=== PATIENT | female | born 1995 | race Caucasian/White ===

== ENCOUNTER 2023-08-16 14:18 | Emergency (ER) | payer OTHER ==
[2023-08-16] MEDS ORDERED: NA CHLORIDE 0.9% 1,000 ML ONE (15:27)
[2023-08-16] MEDS ORDERED: LORazepam 2 MG/ML VIAL ONE (15:27)
[2023-08-16 15:51] LABS: Absolute Eosinophils 0.1 K/uL (0-0.5); Absolute Lymphocytes (CBC) 2.7 K/uL (0.7-4.9); Absolute Monocytes 0.9 K/uL (0.1-1.3); Absolute Neutrophil 9.1 K/uL (1.8-8.0); Basophils % 0.3 % (0-1.3); Eosinophils % 0.7 % (0-4.4); Hematocrit 44.5 % (36.0-45.0); Hemoglobin 15.2 g/dL (12.0-15.0); Lymphocytes % 20.9 % (15.3-44.8); MCH 35.5 pg (27.0-35.0); MCV 104.3 fL (80-100); MPV 7.4 fL (7.6-11.3); Monocytes % 6.8 % (3.3-12.3); Neutrophils % 71.3 % (41.7-73.7); Platelets 398 thou/uL (152-406); RBC Red Blood Cell Count 4.27 M/uL (3.86-4.86)
[2023-08-16 16:25] LABS: ALT/SGPT 67 U/L (13-56); AST/SGOT 30 U/L (15-37); Albumin 4.1 g/dL (3.4-5.0); Albumin/Globulin Ratio 1.1 (1.1-1.8); Alkaline Phosphatase 104 U/L (45-117); Anion Gap 11.5 mEq/L (5.0-15.0); BUN Blood Urea Nitrogen 8 mg/dL (7-18); Bicarbonate 23 mEq/L (21-32); Bilirubin Direct 0.3 mg/dL (0-0.2); Bilirubin Indirect, Calculated 0.7 mg/dL (0.2-0.8); Globulin 3.8 g/dL (2.3-3.5); Glomerular Filtration Rate 113 ml/min (=/>90); Glucose Level 88 mg/dL (74-106); Magnesium 2.1 mg/dL (1.6-2.4); Potassium 3.5 mEq/L (3.5-5.1); Protein, Total 7.9 g/dL (6.4-8.2); Sodium Level 137 mEq/L (136-145)
[2023-08-16 16:32] LABS: Troponin High Sensitivity < 3.0 pg/mL (<58.9)
--- NOTE | 2023-08-16 16:38 | RAD REPORT ---
EXAM DESCRIPTION: Angelito Single View08/16/2023 4:16 pm CLINICAL HISTORY: Chest pain COMPARISON: none FINDINGS: The lungs appear clear of acute infiltrate. The heart is normal size IMPRESSION: No acute abnormalities displayed
[2023-08-16] MEDS ORDERED: ONDANSETRON 4 MG/2 ML VIAL ONE (16:54)
[2023-08-16] MEDS ORDERED: KETOROLAC 30 MG/ML INJ ONE (16:54)
--- NOTE | 2023-08-16 17:41 | EDPHYS ---
Physician Documentation [facility] Name: Jonny Felix Age: 27 yrs Sex: Female : 1995 Arrival Date: 08/16/2023 Time: 14:18 Bed 29 Private MD: ED Physician Bryant Escoto HPI: 08/15 15:14 This 27 yrs old Female presents to ER via Unassigned with complaints of Chest Pain, sb4 Breathing Difficulty. 15:23 Patient reports chest pain and shortness of breath for 3 weeks now. She states that it sb4 was intermittent and now is more continuous. She saw a provider at [facility] who did PFTs and EKG and was given an inhaler. She states that it has not helped and her pain has persisted. She states that she vomited today. Patient is shaking in triage. Historical: - Allergies: 15:28 No Known Allergies; ph - Immunization history:: Adult Immunizations up to date. - Infectious Disease History:: Denies. - Social history:: Smoking status: Patient denies any tobacco usage or history of. ROS: 15:23 Constitutional: Negative for fever, chills, and weight loss, sb4 15:23 Cardiovascular: Positive for chest pain, 15:23 Respiratory: Positive for shortness of breath, 15:23 Abdomen/GI: Positive for nausea and vomiting, 15:23 All other systems are negative, Exam: 15:23 Head/Face: Normocephalic, atraumatic. Eyes: Extra-ocular motions intact. Periorbital sb4 areas with no swelling, redness, or edema. ENT: Mucous membranes moist. Skin: Warm, dry with normal turgor. Normal color with no rashes, no lesions, and no evidence of cellulitis. MS/ Extremity: Pulses equal, no cyanosis. Neurovascular intact. Full, normal range of motion. Neuro: Awake and alert, GCS 15, oriented to person, place, time, and situation. Motor strength 5/5 in all extremities. Sensory grossly intact. 15:23 Constitutional: The patient appears alert, awake, anxious, restless, uncomfortable, Vital Signs: 15:27 BP 117 / 86; Pulse 87; Resp 18; Temp 97.5; Pulse Ox 99% on R/A; Weight 58.97 kg; Height ph 5 ft. 3 in. ; 17:59 BP 129 / 82; Pulse 62; Resp 17; Pulse Ox 98% on R/A; cm10 15:27 Body Mass Index 23.03 (58.97 kg, 160.02 cm) ph MDM: 14:44 Patient medically screened. sb4 17:40 Data reviewed: vital signs, nurses notes, lab test result(s), EKG, radiologic studies, sb4 and as a result, I will discharge patient. Counseling: I had a detailed discussion with the patient and/or guardian regarding the historical points, exam findings, and any diagnostic results supporting the discharge/admit diagnosis, lab results, radiology results, to return to the emergency department if symptoms worsen or persist or if there are any questions or concerns that arise at home. 08/15 15:14 Order name: Basic Metabolic Panel; Complete Time: 16:36 sb4 08/15 15:14 Order name: CBC with Diff; Complete Time: 15:58 sb4 08/15 15:14 Order name: D-Dimer; Complete Time: 17:14 sb4 08/15 15:14 Order name: LFT's; Complete Time: 16:36 sb4 08/15 15:14 Order name: Magnesium; Complete Time: 16:36 sb4 08/15 15:14 Order name: Troponin HS; Complete Time: 16:36 sb4 08/15 15:14 Order name: Test, Serum; Complete Time: 16:38 sb4 08/15 15:14 Order name: XRAY Chest (1 view); Complete Time: 16:39 sb4 08/15 15:14 Order name: Cardiac monitoring 08/15 15:14 Order name: EKG - Nurse/Tech; Complete Time: 15:49 sb4 08/15 15:14 Order name: IV Saline Lock; Complete Time: 15:49 sb4 08/15 15:14 Order name: Labs collected and sent; Complete Time: 15:49 sb4 08/15 15:14 Order name: O2 Per Protocol 08/15 15:14 Order name: O2 Sat Monitoring 08/15 15:51 Order name: Labs - recollect needed: recollect blue top; Complete Time: 16:51 bd EC:26 Rate is 89 beats/min. Rhythm is regular, Normal Sinus Rhythm. KS interval is shortened sb4 at 110 msec. QRS interval is normal at 84 msec. QT interval is normal at 360 msec. No Q waves. T waves are Normal. No ST changes noted. Clinical impression: Normal ECG. Interpreted by me. Reviewed by me. Administered Medications: 15:49 Drug: Ativan IVP 0.5 mg IVP once Route: IVP; Site: left antecubital; kb3 17:00 Follow up: Response: No adverse reaction; Anxiety decreased kb3 15:49 Drug: NS 0.9% IV 1000 ml IV at 1 bolus Per protocol; 1000 mL bolus Route: IV; Rate: 1 kb3 bolus; Site: left antecubital; 17:00 Follow up: Response: No adverse reaction; IV Status: Completed infusion; IV Intake: kb3 1000ml 16:59 Drug: Ketorolac IVP 15 mg IVP once Route: IVP; Site: left antecubital; ph 18:00 Follow up: Response: No adverse reaction; Pain is decreased kb3 16:59 Drug: Ondansetron IVP 4 mg IVP once; over 2 minutes Route: IVP; Site: left antecubital; ph 17:00 Follow up: Response: No adverse reaction; Nausea is decreased kb3 Disposition: 18:21 Co-signature as Attending Physician, Bryant Escoto MD I reviewed the patient's care rt provided by the Advanced Practice Provider and agree with the diagnosis and treatment plan. Disposition Summary: 08/16/23 17:40 Discharge Ordered Notes: Location: Home sb4 Problem: an ongoing problem sb4 Symptoms: have improved sb4 Condition: Stable sb4 Diagnosis - Chest pain, unspecified sb4 Followup: sb4 - With: Emergency Department - When: As needed - Reason: Trouble breathing, Worsening of condition Discharge Instructions: - Discharge Summary Sheet sb4 - Nonspecific Chest Pain, Adult, [id number] sb4 Forms: - Work release form sb4 - Patient Portal Instructions sb4 - Leadership Thank You Letter sb4 Prescriptions: - Zofran 4 mg Oral Tablet - take 1 tablet ORAL route every 12 hours As needed; 20 tablet; Refills: 0, sb4 Product Selection Permitted - Diclofenac Sodium 75 mg Oral Tablet Sustained Release - take 1 tablet ORAL route 2 times per day; 30 tablet; Refills: 0, Product sb4 Selection Permitted Signatures: Dispatcher [employer] Courtney Espinal Patricia, RN RN Tara Sánchez, RN RN kb3 Justina Delgado PAMachelleC PA-C sb4 Bryant Escoto MD MD rt Corrections: (The following items were deleted from the chart) 15:14 15:14 BASIC METABOLIC PANEL+C.LAB.BRZ ordered. EDMS EDMS 15:14 15:14 CBC+H.LAB.BRZ ordered. EDMS EDMS 15:14 15:14 D-DIMER+COAG.LAB.BRZ ordered. EDMS EDMS 15:14 15:14 HEPATIC FUNCTION+C.LAB.BRZ ordered. EDMS EDMS 15:14 15:14 MAGNESIUM+C.LAB.BRZ ordered. EDMS EDMS 15:14 15:14 Troponin High Sensitivity+C.LAB.BRZ ordered. EDMS EDMS 15:14 15:14 TEST, SERUM+SC.LAB.BRZ ordered. EDMS EDMS 15:14 15:14 Chest Single View+RAD.RAD.BRZ ordered. EDMS EDMS
--- NOTE | 2023-08-16 17:41 | ER ---
Nurse's Notes [facility] [place] Name: Jonny Felix Age: 27 yrs Sex: Female : 1995 Arrival Date: 08/16/2023 Time: 14:18 Bed 29 Private MD: Diagnosis: Chest pain, unspecified Presentation: 08/15 15:27 Chief complaint: Patient states: Intermittent chest pain x 3 weeks. also reports SOB, ph sweating and nausea. Coronavirus screen: Vaccine status: Patient reports receiving the 2nd dose of the covid vaccine. Ebola Screen: No symptoms or risks identified at this time. Initial Sepsis Screen: Does the patient meet any 2 criteria? No. Patient's initial sepsis screen is negative. Does the patient have a suspected source of infection? No. Patient's initial sepsis screen is negative. Risk Assessment: Do you want to hurt yourself or someone else? Patient reports no desire to harm self or others. Onset of symptoms was August 16, 2023. 15:27 Method Of Arrival: Ambulatory ph 15:27 Acuity: AKI 2 ph Historical: - Allergies: 15:28 No Known Allergies; ph - Immunization history:: Adult Immunizations up to date. - Infectious Disease History:: Denies. - Social history:: Smoking status: Patient denies any tobacco usage or history of. Screenin:00 [facility] ED Fall Risk Assessment (Adult) History of falling in the last 3 months, kb3 including since admission No falls in past 3 months (0 pts) Confusion or Disorientation No (0 pts) Intoxicated or Sedated No (0 pts) Impaired Gait No (0 pts) Mobility Assist Device Used No (0 pt) Altered Elimination No (0 pt) Score/Fall Risk Level 0 - 2 = Low Risk Oriented to surroundings. Abuse screen: Denies threats or abuse. Denies injuries from another. Nutritional screening: No deficits noted. Tuberculosis screening: No symptoms or risk factors identified. Assessment: 16:00 Reassessment:. General: Appears in no apparent distress. Behavior is calm, cooperative. kb3 16:00 Pain: Complains of pain in epigastric area Pain does not radiate. Quality of pain is kb3 described as aching, crampy, Pain began 2-3 days ago. Cardiovascular: Reports chest pain, nausea, Heart tones present Capillary refill < 3 seconds Clubbing of nail beds is absent JVD is absent Patient's skin is warm and dry. Pulses are 2+ in right radial artery and left radial artery Rhythm is sinus rhythm. Respiratory: Reports shortness of breath at rest Breath sounds are clear. GI: Reports upper abdominal pain, nausea. Vital Signs: 15:27 BP 117 / 86; Pulse 87; Resp 18; Temp 97.5; Pulse Ox 99% on R/A; Weight 58.97 kg; Height ph 5 ft. 3 in. ; 17:59 BP 129 / 82; Pulse 62; Resp 17; Pulse Ox 98% on R/A; cm10 15:27 Body Mass Index 23.03 (58.97 kg, 160.02 cm) ph ED Course: 14:19 Patient arrived in ED. mr 14:36 Justina Delgado PA-C is PHCP. sb4 14:36 Bryant Escoto MD is Attending Physician. sb4 15:28 Triage completed. ph 15:28 Arm band placed on Patient placed in waiting room, Patient notified of wait time. EKG ph completed in triage. Results shown to MD. 15:40 Initial lab(s) drawn, by me, sent to lab. Missed attempt(s): 20 gauge in left bc6 antecubital area. 15:50 Test, Serum Sent. bc6 15:50 Basic Metabolic Panel Sent. bc6 15:50 CBC with Diff Sent. bc6 15:50 D-Dimer Sent. bc6 15:50 LFT's Sent. bc6 15:50 Magnesium Sent. bc6 15:50 Troponin HS Sent. bc6 15:51 Inserted saline lock: 22 gauge in left antecubital area, using aseptic technique. bc6 16:00 Patient has correct armband on for positive identification. Provided Education on: Plan kb3 of care. 16:00 No provider procedures requiring assistance completed. IV discontinued, intact, kb3 bleeding controlled, No redness/swelling at site. 16:17 XRAY Chest (1 view) In Process Unspecified. EDMS Administered Medications: 15:49 Drug: Ativan IVP 0.5 mg IVP once Route: IVP; Site: left antecubital; kb3 17:00 Follow up: Response: No adverse reaction; Anxiety decreased kb3 15:49 Drug: NS 0.9% IV 1000 ml IV at 1 bolus Per protocol; 1000 mL bolus Route: IV; Rate: 1 kb3 bolus; Site: left antecubital; 17:00 Follow up: Response: No adverse reaction; IV Status: Completed infusion; IV Intake: kb3 1000ml 16:59 Drug: Ketorolac IVP 15 mg IVP once Route: IVP; Site: left antecubital; ph 18:00 Follow up: Response: No adverse reaction; Pain is decreased kb3 16:59 Drug: Ondansetron IVP 4 mg IVP once; over 2 minutes Route: IVP; Site: left antecubital; ph 17:00 Follow up: Response: No adverse reaction; Nausea is decreased kb3 Medication: 16:00 VIS not applicable for this client. kb3 Intake: 17:00 IV: 1000ml; Total: 1000ml. kb3 Outcome: 17:40 Discharge ordered by . sb4 17:55 Discharged to home ambulatory, kb3 17:55 Condition: stable kb3 17:55 Discharge instructions given to patient, Instructed on discharge instructions, follow up and referral plans. Demonstrated understanding of instructions, follow-up care, medications, Prescriptions given X 2, 18:05 Patient left the ED. kb3 Signatures: Dispatcher [employer] EDMS Sheba Chavez, Reg Reg mr Ifeoma Verdugo, RN RN ph Tara Mills, RN RN kb3 Justina Delgado PA-C PAAlonso sb4 Chica Figuerao Clarissa, RN RN cm10
[2023-08-17 00:13] VITALS: TEMP 97.5
[2023-08-17 00:56] VITALS: BP 129/82; O2SAT 98
--- NOTE | 2023-08-17 12:44 | EKG ---
Test Date: 2023-08-16 Test Time: 15:23:30 [facility] Technician: PH MEASUREMENT RESULTS: Intervals: Rate: 89 IA: 110 QRSD: 84 QT: 360 QTc: 438 [place]: P: 79 IA: 110 QRS: 93 T: 23 INTERPRETIVE STATEMENTS: Sinus rhythm with short IA Otherwise normal ECG No previous ECG available for comparison Electronically Signed On 08-17-23 12:41:46 CDT by Ildefonso [place]
== END 2023-08-16 18:05 | disposition home or self-care (01) ==
LOC: ER 14:18
DX: R07.9 Chest pain, unspecified (principal); R11.2 Nausea with vomiting, unspecified; R06.02 Shortness of breath
CPT/HCPCS: 85025; 80048; 36415; 83735; 84703; 85379; 80076; 84484; 71045; J2405; J7030; 93005